=== PATIENT | male | born 1945 | race Caucasian/White ===

== ENCOUNTER 2020-11-05 10:31 | Outpatient (RCR) | payer MEDICARE, SELFPAY ==
[2020-11-05] MEDS: ACETAMINOPHEN 325 MG TABLET 650 MG PO (12:04)
[2020-11-05] MEDS: diphenhydrAMINE HCl CAP 25 MG CAPSULE PO (12:05)
[2020-11-05] MEDS: FAMOTIDINE 20 MG TABLET PO (12:05)
[2020-11-05 12:10] VITALS: BP 122/69; PULSE 71; RESP 18; TEMP 36.7; O2SAT 99
--- NOTE | 2020-11-05 12:25 | PC.NURSE ---
Patient did not bring home medication list and is unsure of home meds.
--- NOTE | 2020-11-06 14:24 | PC.NURSE ---
Patient feels about the same after infusion. Patient had no reaction to his infusion.
== END 2020-11-05 14:46 | disposition home or self-care (01) ==
LOC: AMCINF 10:31
PROVIDERS: PCP Internal Medicine; Referring Provider Internal Medicine; Visit Provider Internal Medicine Hematology & Oncology
DX: Z23 Encounter for immunization (principal); U07.1 COVID-19; I10 Essential (primary) hypertension
CPT/HCPCS: A9270; J7050; M0243; Q0244

== ENCOUNTER 2023-08-27 19:49 | Emergency (ER) | payer MEDICARE, SELFPAY ==
[2023-08-27] VITALS (7 sets, daily range): BP systolic 119–161; BP diastolic 70–78; PULSE 75–102; RESP 18–23; TEMP 36.6; O2SAT 92–99
--- NOTE | ~2023-08-27 | XR_ITS ---
EXAMINATION: XR chest 2V DATE: 08/27/2023 20:18 INDICATION: Dizziness and lightheadedness TECHNIQUE: PA and lateral views of the chest were obtained. COMPARISON: None FINDINGS: Mild reticular opacities in the posterior lower lung zones, left greater than right. No pleural effus ion or pneumothorax. The cardiomediastinal silhouette is normal. Dual lead pacemaker seen with leads projecting over the expected locations of the right atrium and right ventricle. Moderate thoracic spo ndylosis with bridging osteophytes at multiple levels consistent with diffuse idiopathic skeletal hyp erostosis (DISH). IMPRESSION: 1. Mild reticular opacities at the dependent lung bases and favor atelectasis over mild pulmonary tessie ma or pneumonia. Reviewed, dictated and finalized at location A. IMPRESSION: 1. Mild reticular opacities at the dependent lung bases and favor atelectasis o delmi mild pulmonary edema or pneumonia.
--- NOTE | 2023-08-27 19:54 | ECG_ITS ---
Test Date: 2023-08-27 20:06:27 Measurements Intervals [place] Rate: 88 P: 62 KS: 179 QRS: -70 QRSD: 140 T: 52 QT: 376 QTc: 457 Interpretive Statements SINUS RHYTHM RIGHT BUNDLE BRANCH BLOCK LEFT ANTERIOR FASCICULAR BLOCK VOLTAGE CRITERIA FOR LVH BASELINE WANDER- V2 ABNORMAL ECG No previous ECG available for comparison Electronically Signed On 08-28-2023 07:23:54 CDT by Eric Zarate D.O.
[2023-08-27 20:20] LABS: Basophils Absolute Auto 0.1 K/mm3 (0.0-0.1); Basophils Percent Auto 0.6 % (0.2-1.2); Eosinophils Absolute Auto 0.4 K/mm3 (0-0.3); Eosinophils Percent Auto 4.5 % (0-4.4); Hematocrit 39.5 % (42.0-52.0); Hemoglobin 13.7 g/dL (14.0-18.0); Immature Granulocyte Absolute 0.03 K/mm3 (0.00-0.031); Immature Granulocyte Percent A 0.4 % (0-0.5); Lymphocytes Absolute Auto 2.72 K/mm3 (0.9-3.2); Lymphocytes Percent Auto 33.1 % (18.3-44.2); Mean Corpuscular HGB Conc 34.7 g/dl (32-36); Mean Corpuscular Volume 95.2 fl (80-100); Mean Platelet Volume 10.8 fl (7.4-10.4); Monocytes Absolute Auto 0.9 K/mm3 (0.1-0.6); Monocytes Percent Auto 11.4 % (2.6-8.5); Neutrophils Absolute Auto 4.1 K/mm3 (1.3-6.7); Platelet Count Result 199 k/mm3 (150-375); Red Blood Count 4.15 M/mm3 (4.6-6.20); Red Cell Distribution Width 12.7 % (11.5-14.5); White Blood Count 8.2 K/mm3 (4.5-10.0)
[2023-08-27 20:32] LABS: Alanine Aminotransferase 28 U/L (6-50); Albumin Level 4.4 g/dL (3.5-5.1); Alkaline Phosphatase 105 U/L (38-126); Anion Gap 10 mmol/L (4-12); Aspartate Amino Transferase 33 U/L (17-59); Bilirubin,Total 0.8 mg/dL (0.2-1.3); Blood Urea Nitrogen 34 mg/dL (9-20); Calcium 9.5 mg/dL (8.4-10.2); Carbon Dioxide 25 mmol/L (22-30); Chloride 102 mmol/L (98-107); Estimated CRCL calculation 47 ml/min; Estimated Glomerular Filt Rate 45; Glucose 155 mg/dL (65-110); Potassium 4.3 mmol/L (3.4-5.0); Sodium 137 mmol/L (137-145)
--- NOTE | 2023-08-27 22:07 | PC.NURSE ---
When this RN went to assess patient, patient stated he felt much better, denies any symptoms at this time and I'm ready to go home. ERP notified.
--- NOTE | 2023-08-27 22:30 | ED.DIZZY ---
HPI - Dizziness General Chief Complaint: Dizziness Stated Complaint: dizzy/clamy Time Seen by Provider: 08/27/23 21:41 Source: patient Mode of arrival: ambulatory Limitations: no limitations History of Present Illness HPI Narrative: This is a 77-year-old male that presents to the emergency department for an episode of lightheadedness. Reports they had been walking around [facility]. He started to feel lightheaded and clammy. He had to sit down. He did not pass out. Reports the symptoms have resolved. Reports a similar episode a couple of days ago when he had been outside for a while. Reports he has a pacemaker. He did have this interrogated about a week ago. Denies chest pain, shortness of breath, or palpitations. Related Data Home Medications Medication Instructions Recorded Confirmed apixaban 5 mg tablet (Eliquis) 5 mg PO BID 11/05/20 11/05/20 losartan 25 mg tablet 25 mg PO DAILY 11/05/20 11/05/20 Allergies Allergy/AdvReac Type Severity Reaction Status Date / Time No Known Allergies Allergy Mild Verified 08/27/23 22:01 Review of Systems Review of Systems: CONSTITUTIONAL: Denies fever CARDIOVASCULAR: Denies chest pain, palpitations RESPIRATORY: Denies dyspnea. All systems reviewed & are unremarkable except as noted in HPI and below PMFSH Past Medical History Medical History (Updated 08/27/23 @ 23:33 by Gladis Rowan PA-C) History of hypertension History of pacemaker Social History Social History Smoking packs per day: 0.5 Smoking cigarettes per day: 10.0 Years smoked: 25 Smoking pack-years: 12.50 Smoking status: Former smoker Tobacco type: cigarettes Smoking end date: 10/19/99 Spiritual care concerns: No Exam Narrative: GENERAL: Well-appearing, well-nourished, and in no acute distress. HEAD: Normocephalic, atraumatic. EYES: PERRLA and EOMI. ENT: Nares clear, no rhinorrhea or epistaxis. Mucous membranes moist. Oropharynx without tonsillar hypertrophy exudate or other lesions. Bilateral TMs pearly philip non-bulging NECK: Supple. No adenopathy or masses. No JVD CHEST: Clear to auscultation. No respiratory distress. No wheezes rales or rhonchi HEART: Regular rate and rhythm. No murmur heard. Normal peripheral pulses. EXTREMITIES: Normal range of motion. 1+ pitting edema to the bilateral lower extremities. Normal DP pulses. SKIN: Warm, dry, no rash. NEURO: No focal deficits. Alert and oriented x3. Cranial nerves 2-12 grossly intact PSYCH: Normal mood and affect Course Course Emergency Course: Patient and family updated on workup and agree with plan of care. Reports feeling well. Would like to be discharged Vital Signs Vital signs: Vital Signs Temperature 97.9 F 08/27/23 19:52 Pulse Rate 93 08/27/23 19:52 Respiratory Rate 18 08/27/23 19:52 Blood Pressure 161/78 H 08/27/23 19:52 Pulse Oximetry 96 08/27/23 19:52 Oxygen Delivery Room Air 08/27/23 19:52 Temperature 97.9 F 08/27/23 19:52 Pulse Rate 81 08/27/23 23:30 Respiratory Rate 22 H 08/27/23 23:30 Blood Pressure 161/75 H 08/27/23 23:30 Pulse Oximetry 99 08/27/23 23:30 Oxygen Delivery Room Air 08/27/23 19:52 MDM - Dizziness MDM Narrative Medical decision making narrative: Patient presents to the emergency department after an episode of lightheadedness today. Upon my evaluation patient's symptoms had resolved. He is afebrile and nontoxic appearing. He is neurologically intact. His vitals are stable. Cbc without leukocytosis. Shows normocytic anemia with hemoglobin of 13.7. Metabolic panel with likely chronic kidney dysfunction. Patient does know that he has some mild kidney disease. No recent lab work to compare to here. EKG without acute ST changes and baseline troponin is negative. Patient does have a pacemaker. Reports this has been interrogated recently and did not show any problems. Chest x-ray shows likely some atelectasis. Patient and family updated on john
[2023-08-27 23:21] LABS: Troponin I < 0.012 ng/mL (0.000-0.034)
== END 2023-08-27 23:40 | disposition home or self-care (01) ==
PROVIDERS: Emergency Medicine; Emergency Provider Physician Assistant
DX: R42 Dizziness and giddiness (principal); I10 Essential (primary) hypertension; Z95.0 Presence of cardiac pacemaker; Z87.891 Personal history of nicotine dependence; Z79.01 Long term (current) use of anticoagulants; Z79.899 Other long term (current) drug therapy; I45.2 Bifascicular block
CPT/HCPCS: 36415; 71046; 80053; 84484; 85025; 93005; 99284